=== PATIENT | male | born 1955 | race Caucasian/White ===

== ENCOUNTER 2022-09-16 11:47 | Emergency (ER) | payer MEDICARE, SELFPAY ==
[2022-09-16 11:53] VITALS: BP 120/89; PULSE 58; RESP 14; TEMP 36.7; O2SAT 98
--- NOTE | 2022-09-16 12:11 | PC.NURSE ---
pt has large open gash to RFA. ERP reports two stitches to R artery. pt. has 18g L wrist w/ @L NS running wide open VORB pt. has pressure dressing in place to RFA pt. has sensation to first three digits, unable to feel things in 4 and 5th digits.
--- NOTE | 2022-09-16 12:13 | ED.UPPEXIN ---
HPI - Extremity Injury (Upper) General Chief Complaint: Extremity Injury, Upper Stated Complaint: injury Time Seen by Provider: 09/16/22 12:10 History of Present Illness HPI narrative: Patient is a 67-year-old male who presents ER with large laceration right wrist. He was moving a porcelain toilet when it fell and he suffered laceration to his right forearm. He came in by private vehicle because he lives close to the hospital. He has lost the use of his digits and has decreased feeling in his hand. Patient has hemorrhages and has been holding pressure to the wrist. He is not on any blood thinners or antiplatelet medications. Related Data Allergies Allergy/AdvReac Type Severity Reaction Status Date / Time No Known Allergies Allergy Verified 09/16/22 12:23 Review of Systems Review of Systems: All systems reviewed & are unremarkable except as noted in HPI and below Musculoskeletal: Musculoskeletal: Denies arthralgias and Denies joint swelling Integumentary/Breasts: Skin/Breast: Denies erythema and Denies rash Comments: Large laceration right wrist Neurologic: Reports focal weakness and Reports numbness PMFSH Past Medical History Medical History (Updated 09/16/22 @ 12:24 by Jean Pierre Meadows MD) Healthy adult male Surgical History Surgical History (Updated 09/16/22 @ 12:24 by Jean Pierre Meadows MD) No pertinent past surgical history Exam Narrative: GENERAL: Well-appearing, well-nourished, and in no acute distress. HEAD: Normocephalic, atraumatic. EYES: PERRL and EOMI. ENT: Mucous membranes moist. NECK: Supple. CHEST: Clear to auscultation. No respiratory distress. HEART: Regular rate and rhythm. Normal peripheral pulses. ABDOMEN: Soft, nontender, nondistended. EXTREMITIES: Focused exam of the right wrist reveals large gaping laceration. There is injury to the muscle belly of the flexor muscles. There are several areas of arterial bleeding that were tied off. SKIN: Warm, diaphoresis, no rash. NEURO: See extremity exam, alert and oriented x3. PSYCH: Normal mood and affect. Course Course Emergency Course: Patient accepted by Dr. Valencia at [facility] ER. Patient is a level 1 trauma transfer he will be flown there by air. Patient aware of diagnosis and treatment plan he is aware of the seriousness of his injury. He is aware that he has laceration of the muscle and potential nerve injury. He is aware he had injury to an artery and had multiple areas tied off prior to being transferred. Patient was beginning to pass out during bedside repair. Emergency release 2 units hung at bedside and trauma center in agreement with continuing blood. Patient is on no blood thinners. His tetanus shot is being updated in the ER. Vital Signs Vital signs: Vital Signs Temperature 98.0 F 09/16/22 11:53 Pulse Rate 58 L 09/16/22 11:53 Respiratory Rate 14 09/16/22 11:53 Blood Pressure 120/89 09/16/22 11:53 Pulse Oximetry 98 09/16/22 11:53 Oxygen Delivery Room Air 09/16/22 11:53 Temperature 98.0 F 09/16/22 12:20 Pulse Rate 99 09/16/22 12:25 Respiratory Rate 15 09/16/22 12:25 Blood Pressure 167/95 H 09/16/22 12:25 Pulse Oximetry 100 09/16/22 12:25 Oxygen Delivery Room Air 09/16/22 11:53 Procedures Other Procedure Procedure 1: Other Procedure: Arterial hemorrhage: Patient had hemorrhage control performed at bedside using lidocaine 2% with epinephrine with 4 mL total injected near the sites of bleeding. There is very quick irrigation of the area with 100 mL of normal saline. A 5-0 Vicryl was used to tie off a proximal arterial source and a separate 5-0 Vicryl was used to tie off a distal arterial source of bleeding. Compressive dressing then reapplied. MDM - Extremity Injury (Upper) Lab Data 09/16/22 12:18 09/16/22 12:18 Labs: Lab Results 09/16/22 09/16/22 09/16/22 Range/Units 12:18 12:18 12:18 WBC 3.6 L (4.5-10.0) K/mm3 RBC 3.24 L
[2022-09-16 12:16] VITALS: BP 120/80; PULSE 80; RESP 14; TEMP 36.7; O2SAT 100
[2022-09-16 12:20] VITALS: BP 120/80; PULSE 102; RESP 14; TEMP 36.7; O2SAT 98
[2022-09-16 12:25] VITALS: BP 167/95; PULSE 99; RESP 15; O2SAT 100
[2022-09-16] MEDS: TETANUS,DIPHTHERIA,AC PERTUSSIS ADULT (0.5 ML) BOOSTRIX IM (12:26)
[2022-09-16 12:27] LABS: Basophils Percent Auto 0.8 % (0.2-1.2); Eosinophils Percent Auto 1.1 % (0-4.4); Hematocrit 29.8 % (42.0-52.0); Hemoglobin 9.7 g/dL (14.0-18.0); Immature Granulocyte Absolute 0.01 K/mm3 (0.00-0.031); Immature Granulocyte Percent A 0.3 % (0-0.5); Lymphocytes Percent Auto 44.3 % (18.3-44.2); Mean Corpuscular HGB Conc 32.6 g/dl (32-36); Mean Corpuscular Hemoglobin 29.9 pg (26-34); Mean Platelet Volume 9.4 fl (7.4-10.4); Monocytes Absolute Auto 0.2 K/mm3 (0.1-0.6); Monocytes Percent Auto 6.6 % (2.6-8.5); Neutrophils Absolute Auto 1.7 K/mm3 (1.3-6.7); Neutrophils Percent Auto 46.9 % (45.5-73.1); Platelet Count Result 108 k/mm3 (150-375); Red Blood Count 3.24 M/mm3 (4.6-6.20); Red Cell Distribution Width 13.7 % (11.5-14.5); White Blood Count 3.6 K/mm3 (4.5-10.0)
[2022-09-16 12:40] LABS: Alanine Aminotransferase 16 U/L (6-50); Albumin Level 1.5 g/dL (3.5-5.1); Alkaline Phosphatase 45 U/L (38-126); Anion Gap 3 mmol/L (8-16); Aspartate Amino Transferase 16 U/L (17-59); Bilirubin,Total 0.5 mg/dL (0.2-1.3); Blood Urea Nitrogen 10 mg/dL (9-20); Calcium 3.2 mg/dL (8.4-10.2); Carbon Dioxide 12 mmol/L (22-30); Chloride 121 mmol/L (98-107); Estimated Glomerular Filt Rate > 60; Glucose 172 mg/dL (65-110); Sodium 136 mmol/L (137-145)
[2022-09-16 12:43] LABS: INR 1.6; Prothrombin Time 18.3 Seconds (11.1-14.7)
[2022-09-16 12:44] LABS: Partial Thromboplastin Time 28.2 SECONDS (22.3-36.8)
== END 2022-09-16 12:40 | disposition short-term general hospital (02) ==
LOC: ANHED 12:23
PROVIDERS: Emergency Provider Emergency Medicine
DX: S66.128A Laceration of flexor muscle, fascia and tendon of other finger at wrist and hand level, initial encounter (principal); S55.911A Laceration of unspecified blood vessel at forearm level, right arm, initial encounter; Z23 Encounter for immunization; W26.8XXA Contact with other sharp object(s), not elsewhere classified, initial encounter
CPT/HCPCS: 35206; 36415; 36430; 37618; 80053; 85025; 85610; 85730; 86850; 86900; 86901; 86920; 90471; 90715; 99291; J7030; J7040; P9016

== ENCOUNTER 2022-10-21 08:00 | Outpatient (RCR) | payer MEDICARE, SELFPAY ==
--- NOTE | 2022-10-01 11:47 | OTOPEVAL1 ---
Assessment and note entered by Carlos Bentley, VIGNESH/Juanito, CHT Evaluation Information Assessment Status Evaluation Diagnosis Flexor tendon laceration, right wrist with open wound Onset 09/16/22 Subjective Information Patient sustained a severe laceration to the anterior forearm when he was carrying a porcelain toilet, tripped and fell, the toilet shattered and lacerated 9 of his flexor tendons, median and ulnar nerves. The tendons were repaired and the median nerve had a nerve graft. He states he is involved in a study with the ulnar nerve - he is unsure whether he had this nerve also grafted or an alternative healing method. He comes in today with a dorsal blocking splint that was fabricated at [facility]. He removes the splint 1x/day for hygiene. He removes the straps hourly, when awake, for ROM. Reported Pain Level Pain Score 0: Self Report Additional Pain Score Comments Patient reporting no pain. States he takes no pain medication. States he has more tightness feelings from the swelling, but no pain. Assessment OT Clinical Summary Patient referred to outpatient hand therapy following flexor tendon and nerve laceration and repair 2 weeks ago. He presents today in a dorsal blocking splint and demonstrates excellent technique with his HEP. Remaining sutures were removed. No new exercises were added to his HEP as this is not indicated at this time. Plan to continue to see the patient at the 4 week elodia to upgrade his HEP, continue scar management, and utilization of modalities PRN. Plan of Care Interventions Therapeutic Exercise,Manual Therapy,Therapeutic Activities,Check Out for Orthotic/Pr,Ultrasound, Paraffin OT Services Indicated Yes Treatment Frequency and 0-2x/week for 6 weeks Duration These treatments will address the objective and functional deficits as defined above. The patient will be advanced safely and appropriately in order for the patient to progress towards his/her prior level of function. Additional exercises will be introduced and as well as a comprehensive home exercise program upon discharge, if needed, ?to ensure carryover of functional gains achieved in the clinic. This treatment plan has been reviewed and agreement upon by the patient.
--- NOTE | 2022-11-13 10:07 | OTOPDC ---
Assessment and note entered by Carlos Bentley, OTR/Juanito, CHT Discharge Note OT Clinical Summary After the patient spoke with his insurance company, he has decided to stop attending therapy at 2 clinics. He has decided to continue to follow up with [facility]. The patient is being discharged from our clinic per his request. Thank you.
== END 2022-12-16 08:49 | disposition home or self-care (01) ==
LOC: ANHOT 08:00
DX: S66.921D Laceration of unspecified muscle, fascia and tendon at wrist and hand level, right hand, subsequent encounter (principal); S61.501D Unspecified open wound of right wrist, subsequent encounter
CPT/HCPCS: 97035; 97110; 97140; 97166